=== PATIENT | male | born 1985 | race Caucasian/White ===

== ENCOUNTER 2022-01-17 16:23 | Emergency (ER) | payer BC ==
[~2022-01-17] VITALS: Ht 177.8 cm; Wt 91.0 kg
[2022-01-17 16:42] VITALS: BP 132/90
[2022-01-17 18:06] LABS: CLARITY,URINE CLEAR (Clear); COLOR,URINE YELLOW (Yellow); GLUCOSE, URINE NEGATIVE (Neg); KETONES,URINE TRACE mg/dl (Neg); LEUKOCYTE ESTERASE ,URINE NEGATIVE (Neg); NITRITES, URINE NEGATIVE (Neg); OCCULT BLOOD,URINE TRACE-INTACT (Neg); PH,URINE 5.5 (4.8-8.0); PROTEIN,URINE TRACE mg/dl (Neg); UROBILINOGEN,URINE 0.2 E.U/dL (0.2-1.0)
[2022-01-17 18:13] LABS: UA COLLECTION TYPE VOIDED
[2022-01-17 18:14] LABS: HYALINE CASTS >30 /LPF (NEGATIVE)
[2022-01-17 18:15] LABS: BACTERIA,URINE FEW /HPF (Neg); RBC,URINE 0-2 /HPF (0-2); SQUAMOUS EPITHELIAL CELL,UR FEW /LPF (FEW); WBC,URINE 0-4 /HPF (0-4)
== END 2022-01-17 18:29 | disposition home or self-care (01) ==
LOC: ER 16:24
DX: M54.59 Other low back pain (principal); R10.9 Unspecified abdominal pain; F12.10 Cannabis abuse, uncomplicated
CPT/HCPCS: 81001; 99283